=== PATIENT | male | born 1965 | race Hispanic/Latino ===

== ENCOUNTER 2017-05-17 09:05 | Day surgery (SDC) | payer MEDICAID ==
[~2017-05-17] VITALS: Ht 170.2 cm; Wt 85.8 kg
[~2017-05-17 09:05] MED LIST: DICY10CA13 PO; FOLI1TAB15 PO; LACT10SO PO; PANT40TA25 PO; PROP10TA10 PO; SERT25TA5 PO
[2017-05-17 09:40] VITALS: BP 137/71
[2017-05-17 10:22] LABS: BASOPHILS % (AUTO) 0.9 % (0.0-5.0); EOSINOPHILS % (AUTO) 2.5 % (0.0-8.0); HEMATOCRIT 35.8 % (42-54); LYMPHOCYTES % (AUTO) 19.4 % (21.0-51.0); MEAN CORPUSCULAR HEMOGLOBIN 37.1 pg (27.0-33.0); MEAN CORPUSCULAR HGB CONC 35.5 g/dL (32.0-36.0); MEAN CORPUSCULAR VOLUME 104.5 fL (79-99); MONOCYTES % (AUTO) 12.6 % (3.0-13.0); NEUTROPHILS % (AUTO) 64.6 % (40.0-77.0); PLATELET COUNT (AUTO) 61 K/uL (130-400); RED BLOOD CELL COUNT(AUTO) 3.43 MIL/uL (4.50-6.20); RED CELL DISTRIBUTION WIDTH 16.2 % (11.0-15.5); WHITE BLOOD COUNT (AUTO) 5.6 K/uL (4.8-10.8)
[2017-05-17 10:29] LABS: CREATININE 0.9 mg/dL (0.5-1.5); POTASSIUM 3.3 mmol/L (3.5-5.1)
[2017-05-17 10:34] LABS: BILIRUBIN,TOTAL 9.1 mg/dL (0.2-1.0); TOTAL PROTEIN, SERUM 6.9 g/dL (6.0-8.3)
[2017-05-17 10:43] LABS: INR 1.66 (0.85-1.15); PROTHROMBIN TIME 17.3 SEC (9.6-11.6)
[2017-05-17] MEDS ORDERED: PROPOFOL 10 MG/ML 20ML VIAL IV ONE (11:02)
[2017-05-17 11:11] VITALS: BP 115/69
[2017-05-17 11:39] VITALS: BP 115/69
== END 2017-05-17 12:20 ==
LOC: DAH 09:05
PROVIDERS: ATTEND Internal Medicine
DX: Z12.11 Encounter for screening for malignant neoplasm of colon (principal); K57.30 Diverticulosis of large intestine without perforation or abscess without bleeding; K29.50 Unspecified chronic gastritis without bleeding; A63.0 Anogenital (venereal) warts; I85.00 Esophageal varices without bleeding; K31.89 Other diseases of stomach and duodenum; K74.69 Other cirrhosis of liver; K21.9 Gastro-esophageal reflux disease without esophagitis; F32.9 Major depressive disorder, single episode, unspecified; I10 Essential (primary) hypertension; Z79.899 Other long term (current) drug therapy
CPT/HCPCS: 36415; 43239; 45380; 80053; 82105; 85025; 85610; 88305; 88312; 88342; A4606; J2704

== ENCOUNTER → 2017-05-26 | Outpatient (CLI) | payer MEDICAID | END | disposition home or self-care (01) | LOC: RAH 05-19 09:56 | PROVIDERS: ATTEND Internal Medicine Gastroenterology | DX: K80.20 Calculus of gallbladder without cholecystitis without obstruction (principal); K76.89 Other specified diseases of liver; R18.8 Other ascites | CPT/HCPCS: 76700; 93975 ==

== ENCOUNTER 2017-07-05 00:46 | Emergency (ER) | payer MEDICAID ==
[2017-07-05] MEDS ORDERED: ASPIRIN 325 MG TABLET ONE (01:04)
[2017-07-05 01:22] LABS: BASOPHILS % (AUTO) 2.6 % (0.0-5.0); EOSINOPHILS % (AUTO) 4.7 % (0.0-8.0); HEMATOCRIT 30.5 % (42-54); LYMPHOCYTES % (AUTO) 37.7 % (21.0-51.0); MEAN CORPUSCULAR HEMOGLOBIN 38.1 pg (27.0-33.0); MEAN CORPUSCULAR HGB CONC 35.8 g/dL (32.0-36.0); MEAN CORPUSCULAR VOLUME 106.5 fL (79-99); MONOCYTES % (AUTO) 12.9 % (3.0-13.0); NEUTROPHILS % (AUTO) 42.1 % (40.0-77.0); NUCLEATED RED BLOOD CELLS 0.1 % (0.0-0.19); PLATELET COUNT (AUTO) 55 K/uL (130-400); RED BLOOD CELL COUNT(AUTO) 2.86 MIL/uL (4.50-6.20); RED CELL DISTRIBUTION WIDTH 16.2 % (11.0-15.5)
[2017-07-05 01:30] LABS: INR 1.55 (0.85-1.15); PARTIAL THROMBOPLASTIN TIME 39.8 SEC (26.3-35.5); PROTHROMBIN TIME 16.1 SEC (9.6-11.6)
[2017-07-05 01:31] LABS: POTASSIUM 3.6 mmol/L (3.5-5.1)
[2017-07-05] MEDS ORDERED: NITROGLYCERIN 1GM/1 INCH PACKET TD ONE (01:35)
[2017-07-05 01:42] LABS: B-TYPE NATRIURETIC PEPTIDE 58 pg/mL (0-100)
[2017-07-05] MEDS ORDERED: ACETAMINOPHEN EXTRA STRENGTH 500 MG TABLET ONE (01:43)
[2017-07-05] MEDS ORDERED: LIDOCAINE HCL 2% VISCOUS 15 ML UDCUP ONE (01:54)
[2017-07-05] MEDS ORDERED: MAGNESIUM HYDROXIDE 30 ML/UDCUP ONE (01:55)
[2017-07-05 01:56] LABS: AMPHET/METH SCREEN,URINE NEGATIVE (NEGATIVE); BARBITURATE SCREEN, URINE NEGATIVE (NEGATIVE); BENZODIAZEPINES SCREEN,URINE NEGATIVE (NEGATIVE); CANNABINOID SCREEN,URINE NEGATIVE (NEGATIVE); COCAINE SCREEN,URINE NEGATIVE (NEGATIVE); OPIATE SCREEN,URINE NEGATIVE (NEGATIVE); PHENCYCLIDINE SCREEN,URINE NEGATIVE (NEGATIVE)
[2017-07-05 02:05] LABS: ALBUMIN 1.8 g/dL (3.5-5.0); BILIRUBIN,TOTAL 3.3 mg/dL (0.2-1.0); CREATINE KINASE MB 1.1 ng/mL (0.5-3.6); CREATININE 0.9 mg/dL (0.5-1.5); TOTAL PROTEIN, SERUM 6.7 g/dL (6.0-8.3)
[2017-07-05] MEDS ORDERED: SODIUM CHLORIDE 0.9% 500ML 500 ML IV ONE (03:14)
== END 2017-07-05 04:19 | disposition home or self-care (01) ==
LOC: EDH 00:46
DX: R07.89 Other chest pain (principal); F10.10 Alcohol abuse, uncomplicated; E11.9 Type 2 diabetes mellitus without complications; I10 Essential (primary) hypertension; Z79.4 Long term (current) use of insulin
CPT/HCPCS: 36415; 71045; 80053; 80305; 82550; 82553; 83874; 83880; 84484 ×2; 85025; 85610; 85730; 93005 ×2; 96360; 99285; G0480; J7040

== ENCOUNTER → 2017-12-27 | Outpatient (CLI) | payer MEDICAID | END | disposition home or self-care (01) | LOC: RAH 08:30 | PROVIDERS: ATTEND Family Medicine | DX: K76.0 Fatty (change of) liver, not elsewhere classified (principal); I10 Essential (primary) hypertension; E78.5 Hyperlipidemia, unspecified; E11.9 Type 2 diabetes mellitus without complications; Z79.4 Long term (current) use of insulin | CPT/HCPCS: 76700 ==

== ENCOUNTER 2018-06-04 06:59 | Emergency (ER) | payer MEDICAID ==
[2018-06-04] MEDS ORDERED: LIDOCAINE HCL 2% VISCOUS 15 ML UDCUP ONE (07:29)
== END 2018-06-04 07:45 | disposition home or self-care (01) ==
LOC: EDH 06:59
DX: A63.0 Anogenital (venereal) warts (principal); K62.89 Other specified diseases of anus and rectum; I10 Essential (primary) hypertension; E11.9 Type 2 diabetes mellitus without complications; F32.9 Major depressive disorder, single episode, unspecified; Z79.4 Long term (current) use of insulin